=== PATIENT | female | born 1965 | race Caucasian/White ===

== ENCOUNTER → 2017-06-14 | Outpatient (CLI) | payer SELFPAY ==
[~2017-06-14] VITALS: Ht 170.2 cm; Wt 79.0 kg
[~2017-06-14] MED LIST: ALKA-SELTZER O1 EACH PO; AMBIEN10 MG PO; CIPRO500 MG PO; CORTEF5 M1 PO; DAILY VALUE1 EACH PO; DECADRON0.5 MG PO; LEVOTHYROXINE112 MCG PO; LORAZEPAM0.5 MG PO; METRONIDAZOLE500 MG PO; PERCOCET 5/31 TABLET PO; SERTRALINE HCL50 MG PO; ZOFRAN8 MG PO; ZOLPIDEM TARTRA10 MG PO
[2017-06-14 08:58] VITALS: BP 137/79
== END | disposition home or self-care (01) ==
LOC: IVINF 08:54
PROVIDERS: Internal Medicine
DX: E27.40 Unspecified adrenocortical insufficiency (principal)
CPT/HCPCS: 80400; 82024 90; 82533 91; 96374; J0834

== ENCOUNTER 2018-03-01 00:31 | Emergency (ER) | payer OTHER ==
[2018-03-01 00:50] LABS: BASOPHIL (%) 0.8 % (0-1); BASOPHIL COUNT 0.1 K/uL (0-0.1); EOSINOPHIL (%) 3.8 % (0-5); EOSINOPHIL COUNT 0.3 K/uL (0-0.3); HEMATOCRIT 38.7 % (36.0-46.0); HEMOGLOBIN 13.3 G/DL (11.9-15.5); IMMATURE GRANULOCYTE (%) 0.3 % (0.0-0.7); LYMPHOCYTE (%) 54.1 % (15-42); LYMPHOCYTE COUNT 3.9 K/uL (1.0-2.8); MCH 30.9 PG (29.0-34.0); MCHC 34.4 G/DL (30.0-36.0); MCV 89.8 FL (83-99); MONOCYTE (%) 8.4 % (3-12); MONOCYTE COUNT 0.6 K/uL (0-0.8); NEUTROPHIL (%) 32.6 % (45-76); NEUTROPHIL COUNT 2.3 K/uL (1.8-6.4); PLATELET COUNT 305 K/uL (156-360); RBC DIS.WIDTH-CV 12.8 % (11.8-14.6); RBC DIS.WIDTH-SD 42.5 % (39-53); RED BLOOD COUNT 4.31 M/uL (3.80-5.20); WHITE BLOOD COUNT 7.1 K/uL (4.1-10.2)
[2018-03-01 01:03] LABS: AMYLASE 64 IU/L (1-118); CHLORIDE 109 mEq/L (99-109); POTASSIUM 4.4 mEq/L (3.7-5.4); SODIUM 140 mEq/L (136-147)
[2018-03-01 01:05] LABS: GLUCOSE 111 mg/dL (70-99)
[2018-03-01 01:08] LABS: SERUM ETHYL ALCOHOL 230 mg/dL
[2018-03-01 01:09] LABS: CREATININE 0.8 mg/dL (0.6-1.3); GFR ESTIMATE (CALCULATED) > 59 mL/min/
[2018-03-01 01:10] LABS: UREA NITROGEN (BUN) 6 mg/dL (9-23)
[2018-03-01 01:12] LABS: LIPASE 34 U/L (1.0-51.0)
[2018-03-01 01:18] LABS: QUANTITATIVE HCG < 4.0 MIU/ML
[2018-03-01 04:30] LABS: APPEARANCE CLEAR ((CLEAR)); BILIRUBIN NEGATIVE; BLOOD SMALL; COLOR COLORLESS ((YELLOW)); GLUCOSE (STRIP) NEGATIVE; KETONES NEGATIVE; LEUKOCYTES NEGATIVE; NITRITE NEGATIVE; PROTEIN (STRIP) NEGATIVE; SPECIFIC GRAVITY 1.003 (1.000-1.030); UROBILINOGEN 0.2 MG/DL (0.2-1.0)
[2018-03-01 04:34] LABS: BACTERIA NONE SEEN /HPF; EPITHELIAL CELLS RARE /HPF; MUCUS NONE SEEN /LPF; RED BLOOD CELLS 0-5 /HPF (0-5); UCUL ADDED? NO; WHITE BLOOD CELLS 0-5 /HPF (0-5)
[2018-03-01 04:41] LABS: AMPHETAMINE NEGATIVE (500 ng/mL); BARBITURATES NEGATIVE (200 ng/mL); BENZODIAZEPINES NEGATIVE (150 ng/mL); BUPRENORPHINE NEGATIVE (10 ng/mL); COCAINE NEGATIVE (150 ng/mL); METHADONE NEGATIVE (200 ng/mL); METHAMPHETAMINE NEGATIVE (500 ng/mL); OPIATES (MORPHINE) NEGATIVE (100 ng/mL); OXYCODONE NEGATIVE (100 ng/mL); PHENCYCLIDINE NEGATIVE (25 ng/mL); PROPOXYPHENE NEGATIVE (300 ng/mL); THC CANNABINOIDS NEGATIVE (50 ng/mL); TRICYCLIC ANTIDEPRESSANTS NEGATIVE (300 ng/mL)
== END 2018-03-01 06:33 | disposition home or self-care (01) ==
LOC: TRA 00:31
PROVIDERS: Emergency Medicine
DX: S01.81XA Laceration without foreign body of other part of head, initial encounter (principal); W01.198A Fall on same level from slipping, tripping and stumbling with subsequent striking against other object, initial encounter; Y93.01 Activity, walking, marching and hiking; Y92.410 Unspecified street and highway as the place of occurrence of the external cause; F10.129 Alcohol abuse with intoxication, unspecified; S06.0X9A Concussion with loss of consciousness of unspecified duration, initial encounter; S52.502A Unspecified fracture of the lower end of left radius, initial encounter for closed fracture; R40.2410 Glasgow coma scale score 13-15, unspecified time; E27.1 Primary adrenocortical insufficiency; Y90.7 Blood alcohol level of 200-239 mg/100 ml
CPT/HCPCS: 70450; 70486; 72125; 73110; 80048; 81003; 82150; 83690; 84702; 85025; 86850; 86900; 86901; G0480; J3010